=== PATIENT | female | born 1955 | race Caucasian/White ===

== ENCOUNTER 2018-03-22 11:36 | Outpatient (CLI) | payer MEDICARE, MEDICAID ==
[~2018-03-22 11:36] MED LIST: AMIT100T58 PO; ESOM40CA54 PO
[2018-03-22 11:51] VITALS: BP 156/102
== END 2018-03-22 12:32 | disposition home or self-care (01) ==
LOC: ORTHO 11:36
PROVIDERS: ATTEND Nurse Practitioner Family
DX: S52.502G Unspecified fracture of the lower end of left radius, subsequent encounter for closed fracture with delayed healing (principal); I10 Essential (primary) hypertension; J45.909 Unspecified asthma, uncomplicated; F17.210 Nicotine dependence, cigarettes, uncomplicated; Z88.2 Allergy status to sulfonamides; Z88.5 Allergy status to narcotic agent; Z60.2 Problems related to living alone; Z88.8 Allergy status to other drugs, medicaments and biological substances; W11.XXXD Fall on and from ladder, subsequent encounter
CPT/HCPCS: 29125; 73110; 99213

== ENCOUNTER 2018-04-12 10:59 | Outpatient (CLI) | payer MEDICARE, MEDICAID ==
[2018-04-12 11:18] VITALS: BP 159/94
== END 2018-04-12 11:59 | disposition home or self-care (01) ==
LOC: ORTHO 10:59
PROVIDERS: ATTEND Nurse Practitioner Family
DX: S52.502G Unspecified fracture of the lower end of left radius, subsequent encounter for closed fracture with delayed healing (principal); F17.210 Nicotine dependence, cigarettes, uncomplicated; I10 Essential (primary) hypertension; Z88.2 Allergy status to sulfonamides; Z88.5 Allergy status to narcotic agent; W11.XXXD Fall on and from ladder, subsequent encounter
CPT/HCPCS: 73110; 99213